=== PATIENT | female | born 1950 | race Caucasian/White ===

== ENCOUNTER 2018-08-11 16:59 | Inpatient (IN) | payer OTHER, BC ==
[~2018-08-11] VITALS: Ht 167.6 cm; Wt 120.7 kg
[2018-08-11 16:59] VITALS: BP 156/55
[2018-08-11 17:58] LABS: BE(vivo) 3.2 mmol/L (-2 to +3); HCO3 28.4 mmol/L (22.0-26.0); PCO2 VENOUS 45.4 mmHg (41.0-51.0); PO2 VENOUS 23.4 mmHg (35.0-45.0)
[2018-08-11 18:06] LABS: MCH 28.6 pg (26.0-34.0); MCHC 34.2 g/dL (28.0-37.0); MCV 83.8 fL (80.0-100.0); PLATELET COUNT 137 thou/uL (150-400); RDW 14.7 % (10.5-14.5); WBC 19.5 thou/uL (4.0-11.0)
[2018-08-11 18:14] LABS: ANION GAP 5 mmol/L (7-16); BUN 66 mg/dL (7-18); CALCIUM 10.9 mg/dL (8.5-10.1); CHLORIDE 94 mmol/L (98-107); CO2 31 mmol/L (21-32); CREATININE 2.5 mg/dL (0.6-1.0); GLUCOSE 270 mg/dL (74-106); SODIUM 130 mmol/L (136-145)
[2018-08-11 18:22] LABS: ALBUMIN 2.5 g/dL (3.4-5.0); MAGNESIUM 1.5 mg/dL (1.8-2.4); SGOT 17 U/L (15-37); SGPT 22 U/L (30-65); TOTAL BILIRUBIN 0.3 mg/dL (<0.1-1.0); TOTAL PROTEIN 5.6 g/dL (6.4-8.2); TROPONIN-I <0.06 ng/mL (<0.06)
[2018-08-11 18:51] LABS: ABSOLUTE NEUTROPHILS 12.1 thou/uL (1.4-8.2); METAMYELOCYTES 6 %; MYELOCYTES 3 %; PROMYELOCYTES 1 %
[2018-08-11 18:52] LABS: ANISOCYTOSIS 1+; LARGE PLATELETS OCCASIONAL
[2018-08-11 20:01] VITALS: BP 132/52
[2018-08-11] MEDS ORDERED: VITAMINC500 PO (20:09)
[2018-08-11] MEDS ORDERED: ASPIR 8181 MG PO (20:10)
[2018-08-11] MEDS ORDERED: LIPITOR80 MG PO (20:10)
[2018-08-11] MEDS ORDERED: CALCIUM 600 +1 EAC1 PO (20:11)
[2018-08-11] MEDS ORDERED: FLEXERIL PO (20:12)
[2018-08-11] MEDS ORDERED: DECADRON4 MG PO (20:13)
[2018-08-11] MEDS ORDERED: COLACE100 MG PO (20:13)
[2018-08-11] MEDS ORDERED: FENOFIBRATE160 MG PO (20:14)
[2018-08-11] MEDS ORDERED: KRILL OIL 1,001 EAC1 PO (20:15)
[2018-08-11] MEDS ORDERED: AMARYL4 MG PO (20:15)
[2018-08-11] MEDS ORDERED: CULTURELLE1 EACH PO (20:16)
[2018-08-11] MEDS ORDERED: ZYPREXA15 MG PO (20:17)
[2018-08-11] MEDS ORDERED: ZOFRAN ODT4 MG DISSOLVE (20:17)
[2018-08-11] MEDS ORDERED: DISALCID500 MG PO (20:19)
[2018-08-11] MEDS ORDERED: EFFEXOR XR75 MG PO (20:20)
[2018-08-11] MEDS ORDERED: TRADJENTA5 MG (20:20)
[2018-08-11] MEDS ORDERED: TOUJEO SOL300 UNIT/1 (20:20)
[2018-08-11] MEDS ORDERED: ENDOCET 5-3251 EACH PO (20:22)
[2018-08-11 20:24] VITALS: BP 98/59
--- NOTE | 2018-08-11 22:25 | EKG ---
[address] [address] ELECTROCARDIOGRAM REPORT Name: INGRIS JOYA Room #: 463-P ADM IN M.R.#: [id number] Admission: 08/11/18 Attend Phys: Dez Manriqeuz MD Discharge: Date of : 52 Report #: [id number] THIS REPORT FOR: //name// [facility] ED Test Date: 2018-08-11 Test Time: 19:23:21 Pat Name: INGRIS JOYA Department: Room: 463 Gender: F Medical Management Specialist: [email or web address] : 1950 Requested By: Shelbi Lyles Order Number: [id number] MD: Lyle Taylor Measurements Intervals [place] Rate: 90 P: 47 WV: 164 QRS: 45 QRSD: 84 T: -83 QT: 386 QTc: 473 Interpretive Statements Sinus rhythm Borderline repolarization abnormality No previous ECG available for comparison Electronically Signed On 08-11-2018 22:25:41 [employer] by Lyle Taylor [email or web address] <ELECTRONICALLY SIGNED> By: Lyle Taylor MD 08/11/185 22 22 Lyle Taylor MD /CELINE
[2018-08-12] MEDS ORDERED: TENORETIC 1001 EACH PO (02:49)
[2018-08-12] MEDS ORDERED: LISINOPRIL10 MG PO (02:51)
[2018-08-12 03:40] LABS: URINE BILIRUBIN NEGATIVE (Negative); URINE BLOOD NEGATIVE (Negative); URINE CLARITY CLEAR; URINE COLOR YELLOW; URINE GLUCOSE-RANDOM* TRACE (Negative); URINE KETONES NEGATIVE (Negative); URINE LEUKOCYTES-REFLEX NEGATIVE (Negative); URINE NITRITE-REFLEX NEGATIVE (Negative); URINE PROTEIN (DIPSTICK) NEGATIVE (Negative); URINE UROBILINOGEN 0.2 E.U./dl (0.2-1.0)
[2018-08-12 04:30] VITALS: BP 98/33
[2018-08-12 07:12] LABS: HEMATOCRIT 34.7 % (37.0-47.0); MCH 28.7 pg (26.0-34.0); MCHC 34.2 g/dL (28.0-37.0); MCV 83.9 fL (80.0-100.0); PLATELET COUNT 134 thou/uL (150-400); RBC 4.14 mil/uL (4.20-5.00); WBC 21.1 thou/uL (4.0-11.0)
[2018-08-12 07:20] LABS: CALCIUM 9.4 mg/dL (8.5-10.1); CREATININE 1.9 mg/dL (0.6-1.0); MAGNESIUM 2.2 mg/dL (1.8-2.4)
[2018-08-12 07:22] LABS: HEMOGLOBIN 11.8 gm/dL (12.0-15.0)
[2018-08-12 07:23] LABS: POTASSIUM 2.9 mmol/L (3.5-5.1)
--- NOTE | 2018-08-12 07:28 | NUR ---
ADMIT PT ADMITTED TO ROOM 463 WITH WEAKNESS AND DEHYDRATION. LEFT SCHEST PORT ACCESSED HAS GOOD BLOOD RETURN AND IVF'S INFUSING ORDERED, DENIES PAIN, TOLERATING REG DIET SLEEPING WITH CPAP TOLERATING WELL.
[2018-08-12 08:18] VITALS: BP 112/48
--- NOTE | 2018-08-12 15:17 | NUR ---
Nutrition: pt admitted with dehydration, LALITA and seen due to consult stating cancer. Pt with breast CA and started chemo 08/03. reports poor appetite related to nausea but no weight loss. BMI 43, extreme class 3 obesity. Admit BG > 300, recent decadron. A1C is pending. Add carb controlled to diet order. Obtained food preferences. Pt plans to order meals. Reviewed need for consistent carb/nutrient intake. Current intake approx. 1/3 of meals. Will follow for improvement. Offer one glucerna daily.
[2018-08-12 16:04] LABS: ABSOLUTE NEUTROPHILS 9.9 thou/uL (1.4-8.2); ATYPICAL MONONUCLEARS 2 %; METAMYELOCYTES 5 %; MYELOCYTES 4 %; PROMYELOCYTES 1 %
[2018-08-12 16:05] LABS: ATYPICAL LYMPHS 4 %; LARGE PLATELETS OCCASIONAL; NUCLEATED RBCS 1 /100WBC
--- NOTE | 2018-08-12 17:02 | NUR ---
PT ADMITTED RELATED TO DEHYDRATION,LALITA. CM REVIEWED CHART AND SPOKE WITH CARE TEAM. CM MET WITH PT AT BEDSIDE THIS DAY. PT IS A&O X4. CM ROLE INTRODUCED. PT INDICATED SHE LIVES ALONE IN A HOUSE WITH 2 STEPS TO ENTER AND NO STEPS INSIDE. PT INDICATED SHE HAS A CANE, FWW, AND CPAP FOR HOME USE. PT'S PCP IS TREE SCHRADER. PT INDICATED HER NEIGHBORS KEEP AN EYE ON HER. SHE HAD HOME HEALTH IN THE PAST BUT CAN'T RECALL PROVIDER. SHE PLANS TO WORK WITH DR SANCHEZ TO FIGURE OUT HER CHEMO TREATMENTS. CM TO FOLLOW INDICATED WITH DC PLANNING.
--- NOTE | 2018-08-12 18:32 | NUR ---
PT STABLE THROUGHOUT SHIFT. PT'S K+ WAS CRITICAL AT 2.2, TREATED PER PHYSICIAN AND IMPROVED TO 3.3, NO FURTHUR ORDERS. PT HAD GOOD APPETITE. PT RESTING COMFORTABLY.
[2018-08-12 19:10] VITALS: BP 93/33
[2018-08-12 19:11] LABS: GLYCOHEMOGLOBIN (HGB A1C) 10.7 % (4.8-5.6)
--- NOTE | 2018-08-13 03:03 | NUR ---
PT SLEPT ON AND OFF DURING THE NIGHT PT USED CALL LIGHT EFFECTIVELY VS STABLE NO ISSUES OVERNIGHT.
[2018-08-13 04:13] VITALS: BP 79/63
[2018-08-13 05:26] VITALS: BP 94/62
[2018-08-13 05:27] LABS: HEMATOCRIT 32.4 % (37.0-47.0); MCH 28.5 pg (26.0-34.0); MCHC 33.9 g/dL (28.0-37.0); MCV 84.1 fL (80.0-100.0); RBC 3.85 mil/uL (4.20-5.00); WBC 35.4 thou/uL (4.0-11.0)
[2018-08-13 05:50] LABS: ALBUMIN 2.1 g/dL (3.4-5.0); CALCIUM 8.2 mg/dL (8.5-10.1); CREATININE 1.8 mg/dL (0.6-1.0); MAGNESIUM 1.7 mg/dL (1.8-2.4); TOTAL BILIRUBIN 0.3 mg/dL (<0.1-1.0); TOTAL PROTEIN 4.8 g/dL (6.4-8.2)
[2018-08-13 05:57] LABS: POTASSIUM 2.9 mmol/L (3.5-5.1)
[2018-08-13 08:01] VITALS: BP 144/50
[2018-08-13 14:15] VITALS: BP 153/64
--- NOTE | 2018-08-13 14:44 | NUR ---
TOWARDS POC PT A/O X4, VSS, AFEBRILE. DENIES PAIN. NO CONCERNS VOICED. IS FOR POSSIBLE XFER TO SENIOR SUITES. WILL CONTINUE TO MONITOR.
[2018-08-13 16:48] VITALS: BP 140/83
--- NOTE | 2018-08-13 19:17 | NUR ---
PATIENT TRANSFERRED FROM [facility], REPORT FROM ROM/RN. PATIENT ALERT AND ORIENTED X 4. UP WITH CANE/SBA. PATIENT DENIES PAIN UPON ARRIVAL TO THE UNIT. PATIENT HAS RIGHT CHEST POC WITH NS AT 100CC/HR. PATIENT'S BLOOD SUGAR 207 AT DINNER, SHE REFUSED INSULIN, STATES THE DOCTOR TOLD HER HE WAS GOING TO DISCONTINUE, SHE IS NOT SURE WHICH DOCTOR. PATIENT VERY PLEASANT AND LIKES TO TALK. WILL CONTINUE TO MONITOR.
[2018-08-13 19:22] VITALS: BP 144/68
[2018-08-14 06:01] LABS: ALBUMIN 2.1 g/dL (3.4-5.0); CREATININE 1.3 mg/dL (0.6-1.0); PHOSPHORUS 1.5 mg/dL (2.5-4.9); POTASSIUM 3.5 mmol/L (3.5-5.1)
--- NOTE | 2018-08-14 06:33 | NUR ---
PATIENT ALERT AND ORIENTED X4. UP ADLIB IN ROOM TO THE BATHROOM. DENIES PAIN. BS MONITORED PER ORDER, HOWEVER, PATIENT REFUSES INSULIN. K+ LEVEL THIS AM 3.5 UP FROM 2.9 YESTERDAY. CPAP WORN DURING THE NIGHT. IVF INFUSING W/O COMPLICATION. RESTING QUIETLY. WILL MONITOR.
[2018-08-14] MEDS ORDERED: NOVOLOG100 UNIT/1 SUBQ (09:07)
[2018-08-14 10:03] VITALS: BP 155/49
--- NOTE | 2018-08-14 10:42 | NUR ---
ASSUMED CARE AT 0700, SHIFT ASSESSMENT DONE, MEDS GIVEN, VSS. DENIES ANY NAUSEA, VOMITING, PAIN. DISCHARGE ORDERS RECEIVED. WILL CONTINUE TO ASSIST WITH ADLs NEEDED AND ASSIST WITH DC PLANNING.
[2018-08-14 10:45] VITALS: BP 155/49
--- NOTE | 2018-08-14 13:25 | NUR ---
DISCHARGE ORDERS RECEIVED, PORT-D-CATH NEEDLE WAS HEPARIN FLUSHED AND TAKEN OUT. SCRIPT AND DISCHARGE PAPER WORKS WERE GIVEN. INSULIN EDUCATION AND SLIDING SCALE EDUCATION AND HANDOUT WAS GIVEN. PATIENT WAS TRANSPORTED OUT OF THE UNIT BY THIS NURSE.
--- NOTE | 2018-08-16 08:58 | HC ---
[facility] [place] [address] CONSULTATION Name: INGRIS JOYA Room #: 223-P [facility] IN M.R.#: [id number] Admission: 08/11/18 Attend Phys: Desiree Montalvo Discharge: 08/14/18 Date of : 52 Report #: [id number] THIS REPORT FOR: //name// CC: Catracho Constantine Desiree Montalvo DATE OF SERVICE: 08/14/2018 HISTORY OF PRESENT ILLNESS: The patient was seen in our office with findings of dehydration following recent course of cancer chemotherapy for stage II triple negative breast cancer. She called stating that she was feeling no better and advised to go to the Emergency Room where she subsequently has been admitted. Her blood sugars have been over 300 and she had evidence of clinical dehydration. She earlier complained of being lightheaded and dizzy. Her recent breast history is significant for original stage I ER positive cancer of the left breast with surgery [place] [address] Dedrick Celaya followed by radiation therapy and 5 years of adjuvant tamoxifen, which was completed in August 2006. Screening mammogram at [facility] on 05/23/2018 revealed an abnormality within the previously radiated left breast measuring 2 x 1.5 x 2.6 cm with a biopsy revealing a triple negative, grade 3 histology. She was seen by Dr. Ninoska Palomo who recommended neoadjuvant chemotherapy and she just began Taxotere, carboplatin and Neulasta this past week. This treatment also included corticosteroids, which I suspect have part of the issue with her worsening hyperglycemia. PAST MEDICAL HISTORY: Significant for known obesity and diabetes mellitus. She has had prior renal insufficiency as well as MRSA. She has medically managed hypertension and has seen nephrology in the past. MEDICATIONS: Are as listed on the MFR. ALLERGIES: UNKNOWN ANTIBIOTIC. REVIEW OF SYSTEMS: As in history of present illness. PHYSICAL EXAMINATION: GENERAL: Shows a sleepy/confused obese white female. HEENT: Normocephalic. CHEST: Clear. CARDIOVASCULAR: Normal S1, S2. BREASTS: Reveals a palpable mass. ABDOMEN: Obese. SKIN: Shows poor turgor. [facility] [address] [place] [address] CONSULTATION Name: MAHNAZINGRIS CRUZ Room #: 223-P [facility] IN M.R.#: [id number] Admission: 08/11/18 Attend Phys: Desiree Montalvo Discharge: 08/14/18 Date of : 52 Report #: [id number] NEUROLOGIC: Confused. PSYCHIATRIC: Not agitated. LYMPHATICS: No palpable supraclavicular or axillary adenopathy. ASSESSMENT: Stage II triple negative breast cancer with recent first course of cancer chemotherapy. PLAN: I suspect these issues are all metabolic and related to worsening of her diabetes leading to dehydration and further renal insufficiency, metabolic encephalopathy/confusion. Hopefully, with rehydration and correction of her blood sugar, these will all resolve. She is scheduled to see me back on 08/24/2018 with a second cycle of chemotherapy and plan adjustments as needed. Thanks for notifying us of her hospitalization. <ELECTRONICALLY SIGNED> By: Alem Eaton MD 08/16/18 0858 [id number] Alem Eaton MD /nt
== END 2018-08-14 13:27 | disposition home or self-care (01) | DRG 70 ==
LOC: ER 16:59 → 4W 19:06 → EROBS 19:06 → 4W 20:32 → SICU 08-13 16:35
PROVIDERS: Nurse Practitioner Acute Care; Physician Assistant; ADMIT Hospitalist
DX: G93.41 Metabolic encephalopathy (principal); R65.11 Systemic inflammatory response syndrome (SIRS) of non-infectious origin with acute organ dysfunction; N17.9 Acute kidney failure, unspecified; E87.1 Hypo-osmolality and hyponatremia; Z68.41 Body mass index [BMI] 40.0-44.9, adult; E86.0 Dehydration; E11.22 Type 2 diabetes mellitus with diabetic chronic kidney disease; N18.3 Chronic kidney disease, stage 3 (moderate); E83.42 Hypomagnesemia; E11.65 Type 2 diabetes mellitus with hyperglycemia; E83.52 Hypercalcemia; I12.9 Hypertensive chronic kidney disease with stage 1 through stage 4 chronic kidney disease, or unspecified chronic kidney disease; E66.9 Obesity, unspecified; Z85.3 Personal history of malignant neoplasm of breast; Z87.891 Personal history of nicotine dependence; Z86.14 Personal history of Methicillin resistant Staphylococcus aureus infection; Z86.73 Personal history of transient ischemic attack (TIA), and cerebral infarction without residual deficits; Z92.21 Personal history of antineoplastic chemotherapy; Z92.3 Personal history of irradiation; Z90.710 Acquired absence of both cervix and uterus; Z79.4 Long term (current) use of insulin; Z79.82 Long term (current) use of aspirin; Z79.899 Other long term (current) drug therapy
CPT/HCPCS: 10040; 15002

== ENCOUNTER → 2021-04-10 | Outpatient (CLI) | payer OTHER, BC ==
[~2021-04-10] MED LIST: AMARYL4 MG PO; ASPIR 8181 MG PO; CALCIUM 600 +1 EAC1 PO; COLACE100 MG PO; CULTURELLE1 EACH PO; DECADRON4 MG PO; DISALCID500 MG PO; EFFEXOR XR75 MG PO; ENDOCET 5-3251 EACH PO; FENOFIBRATE160 MG PO; FLEXERIL PO; KRILL OIL 1,001 EAC1 PO; LIPITOR80 MG PO; LISINOPRIL10 MG PO; NOVOLOG100 UNIT/1 SUBQ; TENORETIC 1001 EACH PO; TOUJEO SOL300 UNIT/1; TRADJENTA5 MG; VITAMINC500 PO; ZOFRAN ODT4 MG DISSOLVE; ZYPREXA15 MG PO
== END ==
LOC: SJCVC 10:16
PROVIDERS: ATTEND Internal Medicine Cardiovascular Disease
DX: R94.31 Abnormal electrocardiogram [ECG] [EKG] (principal); R55 Syncope and collapse; I10 Essential (primary) hypertension; E78.00 Pure hypercholesterolemia, unspecified; E11.22 Type 2 diabetes mellitus with diabetic chronic kidney disease; E11.40 Type 2 diabetes mellitus with diabetic neuropathy, unspecified; E78.5 Hyperlipidemia, unspecified; Z79.4 Long term (current) use of insulin; Z82.49 Family history of ischemic heart disease and other diseases of the circulatory system; Z79.82 Long term (current) use of aspirin; Z79.899 Other long term (current) drug therapy; Z88.8 Allergy status to other drugs, medicaments and biological substances; Z87.891 Personal history of nicotine dependence

== ENCOUNTER → 2021-04-29 | Outpatient (CLI) | payer OTHER, BC | LOC: SJCVCIMAG 07:51 | PROVIDERS: ATTEND Internal Medicine Cardiovascular Disease | DX: I25.9 Chronic ischemic heart disease, unspecified (principal); R55 Syncope and collapse; E78.00 Pure hypercholesterolemia, unspecified; I10 Essential (primary) hypertension; F32.9 Major depressive disorder, single episode, unspecified; E11.40 Type 2 diabetes mellitus with diabetic neuropathy, unspecified; E78.5 Hyperlipidemia, unspecified; M19.90 Unspecified osteoarthritis, unspecified site; G62.9 Polyneuropathy, unspecified; M48.00 Spinal stenosis, site unspecified; Z88.8 Allergy status to other drugs, medicaments and biological substances; Z79.82 Long term (current) use of aspirin; Z79.4 Long term (current) use of insulin; Z79.899 Other long term (current) drug therapy; Z87.891 Personal history of nicotine dependence; Z82.49 Family history of ischemic heart disease and other diseases of the circulatory system ==

== ENCOUNTER → 2021-05-07 | Outpatient (CLI) | payer OTHER, BC ==
[~2021-05-07] VITALS: Ht 165.1 cm; Wt 112.0 kg
[2021-05-07 08:52] LABS: CALCIUM 9.2 mg/dL (8.5-10.1); POTASSIUM 4.2 mmol/L (3.5-5.1)
[2021-05-07 09:00] VITALS: BP 151/58
--- NOTE | 2021-05-07 14:40 | CATHLAB ---
[facility] [place] [address] INVASIVE PROCEDURE REPORT Name: INGRIS JOYA Room #: REG ELIGIO StevenMichael#: [id number] Admission: 05/07/21 Attend Phys: Milad Wong MD Discharge: Date of : 52 Report #: [id number] THIS REPORT FOR: cc: Rosa M Branch DNP, Mary E. DNP Park, Jin S. MD ~ APPROVED REPORT Study performed: 05/07/2021 11:05:13 Patient Details Patient Status: Out-Patient Room #: The patient is a 70 year-old female Event Personnel Milad Wong Medical Field Representative, Singh Singh RN RN, Luisa Weber RTR Monitor, Jemma Joy RTR, Bobby Lopez Carly RTR Monitor Procedures Performed Left Heart Cath w/or w/o Coronaries [id number] [facility] Art Access - R femoral artery* 20276 Initial Mod Sed Same Phys/QHP Gr5y [id number] Hemostasis with Manual pressure Indication Dyspnea, Syncope, Positive stress test Risk Factors Obesity, HypercholesterolemiaPhysical Activity, Hypertension, Diabetes Procedure Narrative The patient was brought electively to the Cardiac Catheterization Laboratory and was prepped and draped in a sterile manner. The Right Groin^ was infiltrated with 1% Lidocaine subcutaneous anesthesia. A PINNACLE 4FR Sheath #[id number] sheath was inserted into the RFA^. Coronary angiography was performed using coronary diagnostic catheters. The right coronary system was accessed and visualized with a JR4 catheter. The left coronary system was accessed and visualized with a JL4 catheter. The left ventricle was accessed and visualized with a JR4 catheter. Left ventricular/Aortic Valve gradient assessed via catheter pullback. Left ventriculogram was performed in 30 degree projection. Hemostasis was obtained with manual pressure following sheath removal without any complications. The patient tolerated the [facility] [place] [address] INVASIVE PROCEDURE REPORT Name: INGRIS JOYA Room #: REG [facility]#: [id number] Admission: 05/07/21 Attend Phys: Milad Wong MD Discharge: Date of : 52 Report #: [id number] procedure well and there were no complications associated with the procedure. There was no hematoma. Intraoperative Conscious Sedation Sedation start time: 12:34 Case end Time: 13:04 Fentanyl 50 mcg Fluoro Time: 1.70 minutes Dose: DAP 5493.40 cGycm2 771 mGy Contrast Type and Amount: Visipaque 40 ml Coronary Angiography The patient's coronary anatomy is right dominant. Diagnostic Cath Left Main The left main artery is a large-caliber vessel, appears angiographically normal. LAD The LAD is a moderate-sized caliber vessel, traverses the anterior wall and terminates just before the apex. The LAD is moderately calcified in the proximal and mid segments. There is a severe, discrete stenosis in the midsegment, 80%. Just before the stenosis, the LAD is tortuous. Diagonal 1 This is a small caliber vessel, patent with no flow-limiting lesions. Diagonal 2 This is a small caliber vessel, patent with no flow-limiting lesions. Circumflex Supplies 2 obtuse marginal vessels. OM1 This has an early takeoff, patent with no flow-limiting lesions. OM2 There is a moderate stenosis in the proximal segment, 40%. Right Coronary The RCA is a dominant vessel, with moderate calcifications throughout. There are severe, discrete lesions in the proximal and mid segments, 70 to 80%. R PDA This is a moderate-sized caliber vessel, extends around the apex. This vessel is patent with no flow-limiting lesions. RPLV This is a moderate-sized caliber vessel, patent with no flow-limiting lesions. Left Ventriculography Left Ventriculography was not performed. Ejection Fraction was 55-60% based off patient's Nuclear Cardiac Stress Test. An LVEDP was measured and there is no gradient across the outflow tract. [facility] [address] [place] [address] INVASIVE PROCEDURE REPORT Name: INGRIS JOYA Room #: REG [facility]#: [id number] Admission: 05/07/21 Attend Phys: Milad Wong MD Discharge: Date of : 52 Report #: [id number] Hemodynamics The aortic pressure is 120/55 mmHg with a mean of 82 mmHg. The left ventricular pressure is 129/7 mmHg with a mean of mmHg. The left ventricular end diastolic pressure is 19 mmHg. Pullback from the left ventricle to the aorta revealed no gradient across the aortic valve. Conclusion 1. There are severe stenosis involving the LAD and RCA. Both vessels are at least moderately calcified with tortuous segments. 2. There is moderate disease in OM 2. 3. There is normal LV systolic function. 4. Recommend CV surgical consultation, staged PCI and medical therapy. <ELECTRONICALLY SIGNED> By: Milad Wong MD 05/07/21 1439 [id number] [id number] Milad Wong MD /INF
== END | disposition home or self-care (01) ==
LOC: CATH 08:08
PROVIDERS: ATTEND Internal Medicine Cardiovascular Disease
DX: R94.39 Abnormal result of other cardiovascular function study (principal); I25.10 Atherosclerotic heart disease of native coronary artery without angina pectoris; R06.00 Dyspnea, unspecified; R55 Syncope and collapse; I12.9 Hypertensive chronic kidney disease with stage 1 through stage 4 chronic kidney disease, or unspecified chronic kidney disease; E11.22 Type 2 diabetes mellitus with diabetic chronic kidney disease; N18.32 Chronic kidney disease, stage 3b; E78.00 Pure hypercholesterolemia, unspecified; E66.9 Obesity, unspecified; Z86.73 Personal history of transient ischemic attack (TIA), and cerebral infarction without residual deficits; Z98.890 Other specified postprocedural states; Z79.899 Other long term (current) drug therapy; Z87.891 Personal history of nicotine dependence

== ENCOUNTER → 2021-05-12 | Outpatient (CLI) | payer OTHER, BC | LOC: SJCVC 13:47 | PROVIDERS: ATTEND Internal Medicine Cardiovascular Disease | DX: E11.22 Type 2 diabetes mellitus with diabetic chronic kidney disease (principal); E11.40 Type 2 diabetes mellitus with diabetic neuropathy, unspecified; I25.10 Atherosclerotic heart disease of native coronary artery without angina pectoris; F32.9 Major depressive disorder, single episode, unspecified; I10 Essential (primary) hypertension; E78.5 Hyperlipidemia, unspecified; Z87.891 Personal history of nicotine dependence; Z88.8 Allergy status to other drugs, medicaments and biological substances; Z79.82 Long term (current) use of aspirin; Z79.899 Other long term (current) drug therapy; Z79.4 Long term (current) use of insulin ==

== ENCOUNTER → 2021-05-21 | Outpatient (CLI) | payer OTHER, BC | LOC: SJCVC 13:27 | PROVIDERS: ATTEND Internal Medicine Cardiovascular Disease | DX: I25.10 Atherosclerotic heart disease of native coronary artery without angina pectoris (principal); E78.00 Pure hypercholesterolemia, unspecified; I12.9 Hypertensive chronic kidney disease with stage 1 through stage 4 chronic kidney disease, or unspecified chronic kidney disease; N18.9 Chronic kidney disease, unspecified; E11.22 Type 2 diabetes mellitus with diabetic chronic kidney disease; F32.9 Major depressive disorder, single episode, unspecified; E78.5 Hyperlipidemia, unspecified; E11.9 Type 2 diabetes mellitus without complications; R55 Syncope and collapse; Z87.828 Personal history of other (healed) physical injury and trauma; Z79.4 Long term (current) use of insulin; Z79.82 Long term (current) use of aspirin; Z79.899 Other long term (current) drug therapy; Z88.8 Allergy status to other drugs, medicaments and biological substances; Z87.891 Personal history of nicotine dependence ==